=== PATIENT | female | born 1945 | race Caucasian/White ===

== ENCOUNTER 2021-01-22 15:26 | Outpatient (CLI) | payer MEDICARE, BC ==
[2021-01-23 14:41] LABS: SARS-CoV-2 PCR by NAA Not Detected (NotDetected)
== END 2021-01-22 15:27 | disposition home or self-care (01) ==
LOC: LABBT 15:26
PROVIDERS: ATTEND Ophthalmology Retina Specialist
DX: Z01.812 Encounter for preprocedural laboratory examination (principal); H33.42 Traction detachment of retina, left eye; Z20.822 Contact with and (suspected) exposure to COVID-19
CPT/HCPCS: U0003; U0005

== ENCOUNTER 2021-01-25 07:33 | Day surgery (SDC) | payer MEDICARE, BC ==
[~2021-01-25 07:33] MED LIST: Fluorouracil 100 MG, Enoxaparin Sodium 25 MG, EPINEPHrine 0.3 MG in Ophthalmic Irrigati... IRR SCH
[2021-01-25] MEDS ORDERED: Phenylephrine 2.5% Ophth Soln 5 ML BOT ONE (07:53)
[2021-01-25] MEDS ORDERED: Cyclopentolate 1% Opth Drop 2 ML BOT ONE (07:53)
[2021-01-25] MEDS ORDERED: PROPOFOL 20 ML ONE (08:18)
[2021-01-25] MEDS ORDERED: Midazolam HCl 2 mg/2 ml Vial ONE (08:18)
[2021-01-25] MEDS ORDERED: Fentanyl 100 MCG/2 ML VIAL ONE (08:18)
[2021-01-25] MEDS ORDERED: CEFAZOLIN 1 GM VIAL ONE (09:41)
[2021-01-25] MEDS ORDERED: Lidocaine 4% PF 5 ML AMP ONE (09:41)
[2021-01-25] MEDS ORDERED: Lidocaine 1% PF 5 ML VIAL ONE (09:41)
[2021-01-25] MEDS ORDERED: Enoxaparin Sodium 30 MG/0.3 ML SYRINGE ONE (09:41)
[2021-01-25] MEDS ORDERED: Maxitrol 0.1% Opth Oint 3.5 GM TUBE ONE (09:41)
[2021-01-25] MEDS ORDERED: Triamcinolone 40 MG/ML VIAL ONE (09:41)
[2021-01-25] MEDS ORDERED: Bupivacaine PF 0.75% SDV 10 ML ONE (09:41)
== END 2021-01-25 11:20 | disposition home or self-care (01) ==
LOC: SDC 07:33
PROVIDERS: ATTEND Ophthalmology Retina Specialist
PROC: 08T53ZZ Resection of Left Vitreous, Percutaneous Approach (ICD-10-PCS; principal; 2021-01-25)
DX: H33.012 Retinal detachment with single break, left eye (principal); Z79.899 Other long term (current) drug therapy
CPT/HCPCS: 67025; J0171; J0690; J1650; J2250; J2704; J3010; J3301; J3490; J9190